=== PATIENT | female | born 1955 | race Caucasian/White ===

== ENCOUNTER 2017-01-25 15:28 | Outpatient (CLI) | payer BC, OTHER | END 2017-01-25 15:29 | disposition home or self-care (01) | DX: M17.11 Unilateral primary osteoarthritis, right knee (principal) ==

== ENCOUNTER 2019-07-03 07:41 | Outpatient (CLI) | payer MEDICARE ==
--- NOTE | 2019-07-03 12:13 | Mammography Report ---
Reason: SCREENING MAMMO Procedure Date: 07/03/2019 Accession Number: [id number] / [id number] Procedure: ROSA - Screening Mammo w/Balaji CPT Code: FULL RESULT: EXAM: Screening Mammo w/Balaji DATE: 07/03/2019 8:38 AM CLINICAL HISTORY: Routine screening. No reported personal or family history of breast cancer. TECHNIQUE: (B) - Bilateral CC and MLO views were obtained. COMPARISON: 09/15/2015 through 02/10/2010 PARENCHYMAL PATTERN: (A) - The breasts demonstrate scattered fibroglandular densities bilaterally. FINDINGS: Bilateral breasts: There are no suspicious masses, calcifications, or areas of distortion. IMPRESSION: Negative examination. BI-RADS category 1. RECOMMENDATION: (ANNUAL) - Recommend routine annual screening mammography. BI-RADS CATEGORY: (1) - Negative. STANDARD QUALIFYING STATEMENTS: 1. This examination was not reviewed with the aid of Computer-Aided Detection (CAD). 2. A negative or benign imaging report should not preclude biopsy if clinically suspicious findings are present. 3. Dense breasts may obscure an underlying neoplasm. 4. This examination was reviewed with the aid of 3D breast imaging (tomosynthesis).
== END 2019-07-03 07:42 | disposition home or self-care (01) ==
LOC: DI 07:41
PROVIDERS: ATTEND Internal Medicine
DX: Z12.31 Encounter for screening mammogram for malignant neoplasm of breast (principal)
CPT/HCPCS: 77063; 77067

== ENCOUNTER 2019-07-03 07:44 | Outpatient (CLI) | payer MEDICARE ==
--- NOTE | 2019-07-03 14:31 | DEXA Report ---
Reason: POST MENOPAUSAL Procedure Date: 07/03/2019 Accession Number: [id number] / [id number] Procedure: DEX - Dexa Spine and/or Hip CPT Code: FULL RESULT: EXAM: Dexa Spine and/or Hip DATE: 07/03/2019 8:39 AM CLINICAL HISTORY: POST MENOPAUSAL TECHNIQUE: Dual energy x-ray absorptiometry (DXA) was performed on a PolySpot System. Regions measured are the AP Spine, femoral neck, and if needed forearm. COMPARISON: None. In accordance with the International Society for Clinical Densitometry (ISCD) guidelines, data from previous exams may be reanalyzed using current recommendations and techniques. This is done to allow a more accurate basis for comparison with the current study. FINDINGS: The data for the lumbar spine is as follows: BMD (g/cm/cm) T-SCORE Z-SCORE REGION L1 1.347 1.8 2.7 L2 1.267 0.6 1.5 L3 1.373 1.4 2.3 L4 1.433 1.9 2.8 TOTAL 1.356 1.5 2.4 NOTE: All evaluable vertebrae are used for classification The data for the hip is as follows: BMD (g/cm/cm) T-SCORE Z-SCORE REGION Neck 1.087 0.4 1.4 TOTAL 1.152 1.1 1.8 NOTE: The femoral neck or total proximal femur, whichever is lowest, is used for classification. IMPRESSION: THE WHO CLASSIFICATION BASED ON THE INTERNATIONAL REFERENCE STANDARD IS NORMAL. THE FRACTURE RISK IS NOT INCREASED. RECOMMENDATION: Patients with diagnosis of osteoporosis or osteopenia should have regular bone mineral density assessment. For those eligible for Medicare, routine testing is allowed once every 2 years. Testing frequency can be increased for patients who have rapidly progressing disease or for those who are receiving medical therapy to restore bone mass. COMMENT: World Health Organization (WHO) definitions for osteoporosis and osteopenia: NORMAL BMD: T-score at -1.0 or higher, fracture risk is low OSTEOPENIA BMD: T-score between -1.0 and -2.5, fracture risk is increased. OSTEOPOROSIS BMD: T-score at -2.5 or lower, fracture risk is high. National Osteoporosis Foundation recommends: 1. Obtain adequate dietary calcium (at least 1200 mg per day) and vitamin D (400-800 international units per day). 2. Participate, as appropriate, in regular weightbearing and muscle-strengthening exercise. 3. Avoid tobacco use and reduce alcohol and caffeine intake. 4. For more detailed information see the website at www.NOF.org.
== END 2019-07-03 07:45 | disposition home or self-care (01) ==
LOC: DI 07:44
PROVIDERS: ATTEND Internal Medicine
DX: N95.8 Other specified menopausal and perimenopausal disorders (principal); Z13.820 Encounter for screening for osteoporosis
CPT/HCPCS: 77080

== ENCOUNTER 2021-09-23 08:24 | Outpatient (CLI) | payer MEDICARE ==
--- NOTE | 2021-09-27 13:21 | Mammography Report ---
BILATERAL DIGITAL SCREENING MAMMOGRAM 3D/2D: 09/23/2021 CLINICAL: Routine screening. Comparison is made to exams dated: 07/13/2019 mammogram and 09/15/2015 mammogram - [facility]. There are scattered fibroglandular elements in both breasts. No significant masses, calcifications, or other findings are seen in either breast. There has been no significant interval change. IMPRESSION: NEGATIVE There is no mammographic evidence of malignancy. A 1 year screening mammogram is recommended. This exam was interpreted at Station ID: [id number]. NOTE: For mammograms, a report in lay terms will be sent to the patient. Approximately 15% of breast malignancies will not be visualized mammographically. In the management of a palpable breast mass, a negative mammogram must not discourage biopsy of a clinically suspicious lesion. Electronically Signed By: Sarabjit Rico M.D. ddp/penrad:09/23/2021 09:27:30 ACR BI-RADS Category 1: Negative 3341F PARENCHYMAL PATTERN: (A) - The breast(s) demonstrate(s) scattered fibroglandular densities. BI-RADS CATEGORY: (1) - 1 RECOMMENDATION: (ANNUAL) - Recommend routine annual screening mammography. [id number] 1 year screening LATERALITY: (B)
== END 2021-09-23 08:25 | disposition home or self-care (01) ==
LOC: DI 08:24
PROVIDERS: ATTEND Internal Medicine
DX: Z12.31 Encounter for screening mammogram for malignant neoplasm of breast (principal)

== ENCOUNTER 2021-09-23 08:26 | Outpatient (CLI) | payer MEDICARE ==
--- NOTE | 2021-09-23 09:58 | DEXA Report ---
PROCEDURE: Dexa Spine and/or Hip INDICATIONS: POST MENOPAUSAL TECHNIQUE: Dual energy x-ray absorptiometry (DXA) was performed on a [employer] System. Regions measur ed are the AP Spine, femoral neck, and if needed forearm. COMPARISON: July 03, 2019. FINDINGS: Lumbar Spine: Bone Mineral Density 1.272 g/cm/cm,T score 0.8, normal Left Femoral Neck: Bone Mineral Density 1.067 g/cm/cm, T score 0.2, normal (T score greater or equal to -1.0: NORMAL) (T score from -1.1 to -2.4: OSTEOPENIA) (T score less than or equal to -2.5 to: OSTEOPOROSIS) Impression: Bone mineral density as detailed above. Patients with diagnosis of osteoporosis or osteopenia should have regular bone mineral density assess ment. For those eligible for Medicare, routine testing is allowed once every 2 years. Testing frequ ency can be increased for patients who have rapidly progressing disease or for those who are receivin g medical therapy to restore bone mass. Reviewed by: Tanner Barry MD on 09/23/2021 9:57 AM PST Approved by: Tanner Barry MD on 09/23/2021 9:57 AM PST Station ID: [id number]
== END 2021-09-23 08:27 | disposition home or self-care (01) ==
LOC: DI 08:26
PROVIDERS: ATTEND Internal Medicine
DX: Z13.820 Encounter for screening for osteoporosis (principal); N95.8 Other specified menopausal and perimenopausal disorders

== ENCOUNTER 2021-12-14 07:20 | Emergency (ER) | payer OTHER, MEDICARE ==
--- NOTE | 2021-12-14 07:41 | ED Physician Documentation ---
PD HPI CHEST PAIN - Stated complaint Stated Complaint: CHEST PX, WEAKNESS - Chief complaint Chief Complaint: Cardiac - History obtained from History obtained from: Patient - History of Present Illness Timing - onset: Today Timing - onset during: Sleep (awoke with chest pressure and pain, improved after up and around for few minutes.) Timing - duration: Hours (still having some discomfort substernal) Timing - details: Abrupt onset, Still present Quality: Tightness, Aching Location: Substernal Radiation: Back. No: Jaw, Neck Improved by: Rest, Other (improved sitting up and walking) Worsened by: No: Inspiration, Movement Associated symptoms: Nausea. No: Shortness of air, Diaphoresis, Feeling faint / dizzy, Palpitations Similar symptoms before: No diagnosis (has had similar in mornings a couple of times. Has noted belching and reflux more often lately too.) Recently seen: Not recently seen Review of Systems Constitutional: denies: Fever, Chills Nose: denies: Rhinorrhea / runny nose, Congestion Throat: denies: Sore throat Cardiac: denies: Palpitations, Pedal edema, Calf pain Respiratory: denies: Cough GI: reports: Nausea. denies: Abdominal Pain, Vomiting, Diarrhea : denies: Dysuria, Frequency Musculoskeletal: denies: Extremity swelling Neurologic: reports: Generalized weakness. denies: Near syncope PD PAST MEDICAL HISTORY - Past Medical History Cardiovascular: None Respiratory: None Endocrine/Autoimmune: None - Past Surgical History Past Surgical History: No - Present Medications Home Medications: Ambulatory Orders Medication Instructions Recorded Confirmed Amlodipine Besylate [Norvasc] 2.5 mg PO DAILY 12/14/21 12/14/21 Chlorthalidone 25 mg ORAL DAILY 12/14/21 12/14/21 Lidocaine Viscous 2% [Xylocaine 5 ml PO Q4H PRN #100 ml 12/14/21 Viscous 2%] Losartan [Cozaar] 50 mg PO DAILY 12/14/21 12/14/21 Pantoprazole [Protonix] 40 mg PO DAILY 30 Days #30 tablet 12/14/21 Sucralfate [Carafate] 1 gm PO ACHS #20 tablet 12/14/21 metFORMIN [Glucophage] 500 mg PO DAILY 12/14/21 12/14/21 - Allergies Allergies/Adverse Reactions: Allergies Allergy/AdvReac Type Severity Reaction Status Date / Time Penicillins AdvReac Unknown Verified 12/14/21 07:36 - Living Situation Living Arrangement: reports: At home - Social History Does the pt smoke?: No Smoking Status: Never smoker Does the pt drink ETOH?: No Does the pt have substance abuse?: No - Immunizations Immunizations are current?: Yes PD ED PE NORMAL - Vitals Vital signs reviewed: Yes - General General: Alert and oriented X 3, No acute distress, Well developed/nourished - HEENT HEENT: Pharynx benign - Neck Neck: Supple, no meningeal sign, No adenopathy - Cardiac Cardiac: RRR, No murmur - Respiratory Respiratory: Clear bilaterally, Other (no chestwall tenderness) - Abdomen Abdomen: Soft, Non tender - Derm Derm: Normal color, Warm and dry - Extremities Extremities: Normal ROM s pain, No edema, No calf tenderness / cord - Neuro Neuro: Alert and oriented X 3, No motor deficit, Normal speech Results - Vitals Vitals: Oxygen O2 Source Room air - EKG (time done) 07:26 Rate: Rate (enter#) (56) Rhythm: Sinus bradycardia [place]: Normal Intervals: Normal [place], Other (IVCD) Ischemia: Normal ST segments. No: ST elevation c/w ischemia, ST depression Compare to prior EKG: Old EKG unavailable - Labs Labs: Laboratory Tests 12/14/21 12/14/21 12/14/21 07:32 07:33 07:56 WBC 5.4 RBC 5.10 Hgb 14.5 Hct 43.1 MCV 84.5 MCH 28.4 MCHC 33.6 RDW 12.4 Plt Count 263 MPV 10.1 Neut # (Auto) 3.8 Lymph # (Auto) 1.1 L [place] # (Auto) 0.3 Eos # (Auto) 0.2 Baso # (Auto) 0.0 Absolute Nucleated RBC 0.00 Nucleated RBC % 0.0 Sodium Potassium Chloride Carbon Dioxide Anion Gap BUN Creatinine Estimated GFR (MDRD) Glucose Calcium Total Bilirubin AST ALT Alkaline Phosphatase Troponin I High Sens B-Natriuretic Peptide 34 Total Protein Albumin Globulin Albumin/Globulin Ratio Lipase TSH 4.01 12/14/21 12/14/21 07:56 07:56 WBC RBC Hgb Hct MCV MCH MCHC RDW Plt Count MPV Neut # (Auto) Lymph # (Auto) [place] # (Auto) Eos # (Auto) Baso # (Auto) Absolute Nucleated RBC Nucleated RBC % Sodium 135 Potassium 3.0 L Chloride 92 L Carbon Dioxide 30 Anion Gap 13.0 BUN 14 Creatinine 0.7 Estimated GFR (MDRD) 83 L Glucose 118 H Calcium 9.7 Total Bilirubin 0.8 AST 36 ALT 45 Alkaline Phosphatase 79 Troponin I High Sens 7.3 B-Natriuretic Peptide Total Protein 7.5 Albumin 4.5 Globulin 3.0 Albumin/Globulin Ratio 1.5 Lipase 44 TSH - Rads (name of study) chest xray Radiology: Prelim report reviewed (no acute), See rad report PD MEDICAL DECISION MAKING - ED course Complexity details: considered differential (sounds more likely reflux with esophageal spasm and symptoms improved with GI cocktail here. Labs normal, as are ECG and CXR.), d/w patient Departure - Departure Disposition: 01 Home, Self Care Clinical Impression: Esophageal spasm Chest pain Qualifiers: Chest pain type: precordial pain Qualified Code(s): R07.2 - Precordial pain Condition: Stable Instructions: ED Chest Pain Atypical Unkn Cause, ED GERD Follow-Up: Jerome Verdugo MD [Primary Care Provider] - Prescriptions: Sucralfate [Carafate] 1 gm PO ACHS #20 tablet Pantoprazole [Protonix] 40 mg PO DAILY 30 Days #30 tablet Lidocaine Viscous 2% [Xylocaine Viscous 2%] 5 ml PO Q4H PRN #100 ml PRN Reason: Pain Comments: No signs of heart attack or heart failure nor lung abnormality based on your current test. I presume your symptoms relate to reflux with irritation of the esophagus and likely spasm of the esophagus. I would suggest using a proton pump inhibitor type acid public relations senior associate such as omeprazole or pantoprazole daily for a month. Also coating the stomach particularly at night before bed though it can be a few times daily for the next week or so with sucralfate. To that you can add antacid such as Maalox or Mylanta combined with the lidocaine to help with stomach or esophageal discomfort. Follow-up with your primary care in about a week for reevaluation on the medication regimen. Call for an appointment. I transmitted your prescriptions to the pharmacy. Discharge Date/Time: 12/14/21 10:02
[2021-12-14] MEDS ORDERED: ONDANSETRON 4 MG/2 ML VIAL IVP STA (08:06)
[2021-12-14] MEDS ORDERED: MAG HYDROX/AL HYDROX/SIMETH 30 ML UDC PO STA (08:06)
[2021-12-14] MEDS ORDERED: LIDOCAINE VISCOUS 2% 15 ML UDC MM STA (08:06)
[2021-12-14 08:13] LABS: BASOPHILS % (AUTO) 0.7 %; EOSINOPHILS # (AUTO) 0.2 10^3/uL (0.0-0.7); EOSINOPHILS % (AUTO) 3.7 %; HCT - HEMATOCRIT 43.1 % (37.0-47.0); HGB - HEMOGLOBIN 14.5 g/dL (12.0-16.0); LYMPHOCYTES # (AUTO) 1.1 10^3/uL (1.5-3.5); LYMPHOCYTES % (AUTO) 19.4 %; MEAN CORPUSCULAR HEMOGLOBIN 28.4 pg (27.0-31.0); MEAN CORPUSCULAR HGB CONC 33.6 g/dL (32.0-36.0); MEAN CORPUSCULAR VOLUME 84.5 fL (81.0-99.0); MEAN PLATELET VOLUME 10.1 fL (7.9-10.8); MONOCYTES # (AUTO) 0.3 10^3/uL (0.0-1.0); MONOCYTES % (AUTO) 5.4 %; NEUTROPHILS # (AUTO) 3.8 10^3/uL (1.5-6.6); NEUTROPHILS % (AUTO) 70.6 %; PLT - PLATELET COUNT 263 10^3/uL (130-450); RED CELL DISTRIBUTION WIDTH 12.4 % (12.0-15.0); WHITE BLOOD COUNT 5.4 x10^3/uL (4.8-10.8)
[2021-12-14 08:31] LABS: ALBUMIN 4.5 g/dL (3.2-5.5); ALBUMIN/GLOBULIN RATIO 1.5 (1.0-2.2); BILIRUBIN,TOTAL 0.8 mg/dL (0.2-1.0); CALCIUM 9.7 mg/dL (8.5-10.3); CREATININE 0.7 mg/dL (0.4-1.0); TOTAL PROTEIN 7.5 g/dL (6.7-8.2)
--- NOTE | 2021-12-14 08:51 | XRAY Report ---
PROCEDURE: Chest 1 View X-Ray INDICATIONS: Chest pain TECHNIQUE: One view of the chest was acquired. COMPARISON: None. FINDINGS: SUPPORT DEVICES: None. LUNGS/PLEURA: No focal consolidation, pleural effusion or space-occupying pneumothorax. MEDIASTINUM: The cardiomediastinal silhouette is within normal limits. Tortuous thoracic aorta. BONES/SOFT TISSUES: No acute abnormality. IMPRESSION: 1.No acute cardiopulmonary abnormality. Reviewed by: Tanner Barry MD on 12/14/2021 8:50 AM PDT Approved by: Tanner Barry MD on 12/14/2021 8:50 AM PDT Station ID: [id number]
[2021-12-14 09:44] VITALS: BP 140/89
== END 2021-12-14 10:02 | disposition home or self-care (01) ==
LOC: ED 07:20
DX: K22.4 Dyskinesia of esophagus (principal)
CPT/HCPCS: 36415; 71045; 80053; 83690; 83880; 84443; 84484; 85025; 93005; 96374; 99284; A9270

== ENCOUNTER 2022-02-08 08:48 | Outpatient (CLI) | payer OTHER, MEDICARE ==
--- NOTE | 2022-02-08 09:47 | CARDIAC PROCEDURE NOTE ---
Stress Test Report Service Date: 02/08/22 Service Time: 09:00 Ordering Provider: Jerome Verdugo MD Indication for Test: Assess chest discomfort. Significant Medical History: Chante is referred for exercise stress testing with myocardial perfusion imaging today, to follow-up on an episode of significant chest tightness for which Emergency Department evaluation was performed in late November. She has some risk factors for coronary heart disease as outlined below, as well as history of reported percutaneous repair of a septal defect following a small stroke that was attributed to a paradoxical embolus (not a typical risk factor for CAD). She has a history of chronic GERD and dyspepsia, for which she has been on various treatments in the past. She awoke in the middle of the night in late November with diffuse upper chest tightness that persisted for a few hours, prompting the E.D. visit, at which her EKG did not show ST depression and troponin was negative. Her anti-acid regimen was modified with continuation of daily PPI and addition of Carafate, following which she had no subsequent recurrence of this chest/epigastric discomfort, though she reports that the nature of the chest discomfort that prompted E.D. evaluation seemed different compared with her usual dyspepsia. She had been retired and walking most days of the week 2 to 3 miles per day on a route that involves significant hills, but then she returned to work, so she is currently exercising less. She still walks a couple of times a week and finds that she has some shortness of breath and fatigue while walking hills, though never has exertional chest discomfort. She reports occasional prn use of an inhaler for mild asthma prior to exercising. Cardiac Risk Factors: Positive for hypertension, treated for >20 years, hyperlipidemia, borderline diabetes and some family CAD history (grandparents). Additional risk-modifying factors include remote tobacco smoking though not in past 10 years, as well as apparent untreated obstructive sleep apnea. Type of Stress Test: ETT with Myocardial Perfusion Imaging Procedure: -Exercise Treadmill Test- After signing informed consent, the patient underwent rest SPECT imaging and then performed treadmill exercise using a Nirmal protocol. The patient exercised for 7 minutes and achieved a peak heart rate of 146 (95 percent predicted maximum heart rate for age), and an estimated workload of 8.6 METS. The test was terminated due to leg tightness/fatigue and shortness of breath. Resting heart rate: 63 Peak heart rate: 146 Normal response to exercise. Resting BP: 149/86 Peak BP: 195/102 Hypertensive at rest with physiologic increase of systolic BP and abnormal increase of diastolic BP with exercise. Rhythm during exercise: Normal sinus rhythm with occasional PVCs and a single PVC couplet seen at rest prior to exercise. No clear correlation of PVC frequency with stage of exercise. Symptoms: She reported NO chest discomfort. EKG at rest showed Normal sinus rhythm with poor precordial R wave progression from lead V2 to V4; cannot exclude age-indeterminate anterior infarct. EKG at peak stress showed J-point depression with upsloping ST depression, NOT meeting EKG criteria for ischemia. In Recovery heart rate rapidly/normally returned to baseline level, BP decreased more slowly, remaining slightly elevated (149/94 at 5:00). Nuclear imaging was performed at rest and with stress and will be reported separately. Gil Solomon MD, was present throughout this treadmill stress study and supervised it in its entirety. Summary: 1) Exercise tolerance moderately above average for age and sex as evidenced by STEFAN -15%. 2) Borderline resting EKG, with abnormal precordial R-wave progression from V2- V4, consistent with possible prior infarct. 3) Adequate level of exercise was achieved on this treadmill stress test. 4) Hypertensive at rest, with normal systolic and abnormal diastolic BP response to exercise; the latter may be seen in treated hypertensive patients. 5) No ischemic changes by EKG criteria were seen at peak stress. 6) With some drift in sequential readings it did appear that she had a stress- associated decline in oxygen saturation to the low normal range (88-93%) with rapid normalization in recovery. Her reported history of mild asthma could be at play here. 7) Analysis of gated nuclear images reveals normal left ventricular size, but with a region of septal hypokinesis, with overall preserved LV ejection fraction (64%). SPECT analysis reveals a moderate-sized, primarily fixed defect in the septal region seen to be hypokinetic; there is a small area of reversibility more distal in the septum. Findings are suggestive of an infarct with mild mesha- scar ischemia. See separate report for more detail. CONCLUSIONS: 1) Favorable ETT results, with above average exertional tolerance, no occurrence of chest discomfort and no ischemic ST depression. 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 3) Further evaluation with a diagnostic echocardiogram and consideration of Cardiology consultation (ideally by prior provider) may be appropriate. 4) It may also be reasonable to consider a repeat evaluation for WILLIAM, given prior diagnosis and brief treatment with CPAP, then discontinuation, a few years ago.
--- NOTE | 2022-02-08 15:19 | Nuclear Medicine Report ---
PROCEDURE: Rest and exercise myocardial perfusion SPECT with gated imaging and ejection fraction INDICATIONS: CHEST TIGHTNESS RADIOPHARMACEUTICAL: 12.5 mCi Tc-99m Myoview IV at rest and 40.0 mCi Tc-99m Myoview IV at peak exerc ise. [id number] was performed. TECHNIQUE: Radiopharmaceutical was injected at peak stress test, and also at rest. SPECT images wer e obtained. SPECT myocardial perfusion images were displayed in short axis, horizontal long axis, an d vertical long axis views. Gated images were reviewed using AutoQUANT software. COMPARISON: None available. FINDINGS: Raw data: There is good myocardial labeling by radiotracer. No significant motion artifacts. Lung- to-heart ratio is (normal is less than 0.46 for tetrafosmin tracer). Left ventricle function: Gated images demonstrate normal left ventricle wall thickening. Hypokinesia is present most notable in the septum and to a lesser degree the inferior wall. There is also poor c ontractility identified within the anterior and lateral vanessa. No transient ischemic dilation; TID is 1.08 (normal less than 1.30). The left ventricle resting end-diastolic volume is 92 mL. Left ventr icle stress ejection fraction is 64%; normal values are above 45%. No definitive EKG changes of acute ischemia. Myocardial perfusion: There is a [id number] stress perfusion defect within the septum demonstr ating minimal to mild improvement with rest. IMPRESSION: Mild to moderate size perfusion defect within the septum demonstrating appearance of minimal to mild improvement with rest. There is diffuse hypokinesia within this region. Overall appearance is suggest goldy of prior infarction with suspected mesha-infarct ischemia. No EKG changes of ischemia. Ejection fraction 64%. The above findings were discussed with Dr. Quintanilla on 02/08/2022 at 3:10 PM. PQRS ATTESTATIONS: Measure 322 - Is this imaging test primarily performed on a low-risk surgery patient for preoperative evaluation within 30 days preceding their low-risk non-cardiac surgery? Low-risk surgery is defined as cardiac or myocardial infarction less than 1%, including (but not limited to) endoscopic pr ocedures, superficial procedures, cataract surgery, and excisional breast surgery: Answer: No Measure 323 - Is this imaging test performed primarily for the monitoring of an asymptomatic patient who had percutaneous coronary intervention on the visit date or within 2 years of the visit date? An swer: No Measure 324 - Is this imaging test performed primarily for the initial detection and risk assessment on an asymptomatic, low coronary heart disease patient? Low CHD risk definition = clinicians should consider the maximum number of available patient factors used to estimate risk based on [place] (A TP III criteria), typically age, gender, diabetes, smoking status, and use of blood pressure medicati on, and integrate age appropriate estimates for missing elements, such as LDL or standard blood press ure. Answer: No Reviewed by: Jeanine Gonzalez MD on 02/08/2022 3:17 PM PDT Approved by: Jeanine Gonzalez MD on 02/08/2022 3:17 PM PDT Station ID: [id number]
== END 2022-02-08 08:49 | disposition home or self-care (01) ==
LOC: DI 08:48
PROVIDERS: ATTEND Internal Medicine
DX: R07.89 Other chest pain (principal); K21.9 Gastro-esophageal reflux disease without esophagitis; I10 Essential (primary) hypertension; E78.5 Hyperlipidemia, unspecified; Z87.891 Personal history of nicotine dependence; G47.33 Obstructive sleep apnea (adult) (pediatric); Z82.49 Family history of ischemic heart disease and other diseases of the circulatory system
CPT/HCPCS: 78452; 93017; A9500

== ENCOUNTER 2022-11-20 14:53 | Outpatient (CLI) | payer MEDICARE, OTHER | END 2022-11-20 23:59 | disposition short-term general hospital (02) | LOC: EMS 14:53 | DX: R07.1 Chest pain on breathing (principal); R07.89 Other chest pain; R10.12 Left upper quadrant pain; V49.40XA Driver injured in collision with unspecified motor vehicles in traffic accident, initial encounter; Y92.410 Unspecified street and highway as the place of occurrence of the external cause | CPT/HCPCS: A0425; A0429 ==

== ENCOUNTER 2023-05-16 22:52 | Outpatient (CLI) | payer MEDICARE ==
--- NOTE | 2023-05-17 09:25 | Ultrasound Report ---
PROCEDURE: Duplex Ext Veins Left INDICATIONS: EDEMA TECHNIQUE: Real-time imaging, as well as color and pulse Doppler interrogation, were performed of the lower extr emity deep veins from the inguinal ligament to the popliteal fossa. Attempted visualization of the ca lf veins was performed. COMPARISON: None. FINDINGS: The deep veins are normally compressible, and free of intraluminal thrombus. Color and pu lse Doppler demonstrate normal phasic intraluminal flow. There is normal augmentation response to di stal compression maneuver. IMPRESSION: No deep venous thrombosis of the visualized lower extremity. Reviewed by: Rick Greco MD on 05/17/2023 9:24 AM PDT Approved by: Rick Greco MD on 05/17/2023 9:24 AM PDT Station ID: [id number]
== END 2023-05-16 22:53 | disposition home or self-care (01) ==
LOC: DI 22:52
PROVIDERS: ATTEND Physician Assistant
DX: R60.0 Localized edema (principal)

== ENCOUNTER 2023-10-04 08:41 | Outpatient (CLI) | payer MEDICARE ==
--- NOTE | 2023-10-06 11:34 | Mammography Report ---
BILATERAL DIGITAL SCREENING MAMMOGRAM 3D/2D: 10/04/2023 CLINICAL: Routine screening. Comparison is made to exams dated: 09/23/2021 mammogram, 07/13/2019 mammogram, and 09/15/2015 mammog [facility]. There are scattered areas of fibroglandular density in both breasts (category b / 25%-50% glandular t issue). No significant masses, calcifications, or other findings are seen in either breast. There has been no significant interval change. IMPRESSION: NEGATIVE There is no mammographic evidence of malignancy. A 1 year screening mammogram is recommended. Based on the Tyrer Cuzick model (a risk assessment model) the patients lifetime risk is 3.9% and her 10 year risk is 2.3%. According to the ACR, ACS, and NCCN guidelines, an annual breast MRI exam ross g with mammogram is recommended if the patients lifetime risk is 20% or greater. This exam was interpreted at Station ID: [id number]. NOTE: For mammograms, a report in lay terms will be sent to the patient. Approximately 15% of breast malignancies will not be visualized mammographically. In the management of a palpable breast mass, a negative mammogram must not discourage biopsy of a clinically suspicious lesion. Electronically Signed By: [place] pathak/quinn:10/04/2023 17:31:14 ACR BI-RADS Category 1: Negative 3341F PARENCHYMAL PATTERN: (A) - The breast(s) demonstrate(s) scattered fibroglandular densities. BI-RADS CATEGORY: (1) - 1 Mammogram [id number] 1 year screening LATERALITY: (B)
== END 2023-10-04 08:42 | disposition home or self-care (01) ==
LOC: DI 08:41
PROVIDERS: ATTEND Physician Assistant
DX: Z12.31 Encounter for screening mammogram for malignant neoplasm of breast (principal); R92.323 Mammographic fibroglandular density, bilateral breasts